=== PATIENT | male | born 2000 ===

== ENCOUNTER 2019-02-22 17:53 | Emergency (ER) | payer OTHER ==
[2019-02-22 18:02] VITALS: BMI 24.7
[2019-02-22 18:04] VITALS: BP 110/69
--- NOTE | 2019-02-22 19:38 | C.PDOC ---
History Of Present Illness 18 y/o male presents to ED with 3 day history of lower back pain that began after working out and lifting weights. Patient has not taken anything for pain prior to arrival. He denies any urinary symptoms, fever, chills, IV drug use, or radiation of pain into his extremities. Time Seen by Provider: 02/22/19 18:31 Chief Complaint (Nursing): Back Pain History Per: Patient History/Exam Limitations: no limitations Onset/Duration Of Symptoms: Days Current Symptoms Are (Timing): Still Present Past Medical History Reviewed: Historical Data, Nursing Documentation, Vital Signs Vital Signs: Last Vital Signs Temp 98.9 F 02/22/19 18:02 Pulse 83 02/22/19 18:02 Resp 16 02/22/19 18:02 BP 110/69 02/22/19 18:02 Pulse Ox 96 02/22/19 18:02 Primary Care Provider: FAMILY PROVIDER,NO Family History: States: No Known Family Hx - Social History Hx Alcohol Use: No Hx Substance Use: No - Immunization History Hx Tetanus Toxoid Vaccination: No Hx Influenza Vaccination: No Hx Pneumococcal Vaccination: No Review Of Systems Except As Marked, All Systems Reviewed And Found Negative. Constitutional: Negative for: Fever, Chills Genitourinary: Negative for: Dysuria, Hematuria, Penile Pain Musculoskeletal: Positive for: Back Pain (lower back). Negative for: Arm Pain, Leg Pain Physical Exam - Physical Exam Appears: Non-toxic, No Acute Distress Skin: Warm, Dry Head: Normacephalic Eye(s): bilateral: Normal Inspection Oral Mucosa: Moist Neck: Supple Chest: Symmetrical Back: Normal Inspection, Paraspinal Tenderness (mild tenderness to lumbar spine and paraspinal muscles with mild flexion, extension, and twisting) Extremity: Bilateral: Atraumatic, Normal ROM Neurological/Psych: Oriented x3, Normal Speech, Normal Motor, Normal Sensation Gait: Steady ED Course And Treatment O2 Sat by Pulse Oximetry: 96 (RA) Pulse Ox Interpretation: Normal Progress Note: Patient was given ibuprofen in ED with some improvement in pain. Given history and presentation, no red flag symptoms, pain is likely musculoskeletal. Recommended conservative at home treatment. Disposition Counseled Patient/Family Regarding: Diagnosis, Rx Given - Disposition Disposition: HOME/ ROUTINE Disposition Time: 19:36 Condition: STABLE Additional Instructions: You were seen in the ED for musculoskeletal back pain. You may take motrin for pain relief. Avoid lifting anything over 20 pounds for the next 2 weeks but make sure to stay active (walking, light weights). Return to ED for worsening back pain, problems urinating, or pain in the legs Prescriptions: Ibuprofen [Motrin Tab] 600 mg PO Q8 #30 tab Instructions: Low Back Pain (DC) Forms: [facility] (Samoan) - POA Present On Arrival: None - Clinical Impression Clinical Impression: Lumbar back pain - PA / [employer] / Resident Statement MD/DO has reviewed & agrees with the documentation as recorded. - Scribe Statement The provider has reviewed the documentation as recorded by the Scribe Caprice Hall All medical record entries made by the [place] were at my direction and personally dictated by me. I have reviewed the chart and agree that the record accurately reflects my personal performance of the history, physical exam, medical decision making, and the department course for this patient. I have also personally directed, reviewed, and agree with the discharge instructions and disposition.
[2019-02-22 19:59] VITALS: PULSE 86; RESP 18; TEMP 97.9
[2019-02-22 21:48] VITALS: O2SAT 96
== END 2019-02-22 19:59 | disposition home or self-care (01) ==
LOC: C.ER 17:53
DX: M54.5 Low back pain (principal)